=== PATIENT | male | born 1960 | race Caucasian/White ===

== ENCOUNTER 2016-07-04 15:30 | Day surgery (SDC) | payer OTHER ==
[~2016-07-04] VITALS: Ht 182.9 cm; Wt 108.0 kg
[~2016-07-04 15:30] MED LIST: ASPI-973 PO; FLUT15.88 NS; GLUC-123 PO; KRIL500C PO; KTC2C15 TP; LEVO150T5 PO; LISI10TA PO; MULT1CAP33 PO; SILD20TA14 PO; TEST200V IM; VITA400C64 PO; vitamin b complex PO
[2016-07-04 16:30] VITALS: BP 132/82; PULSE 68; RESP 18; O2SAT 97
[2016-07-04 16:35] VITALS: BP 140/87; PULSE 73; RESP 18; O2SAT 97
--- NOTE | 2016-07-04 16:55 | NUR ---
Phlebotomy Pt just over from Dr. Boogie office, Orders obtained from office, HCT 49.9, parameters HCT 40. Phebotomy performed without fail, VSS, denies dizziness. Pt rescheduled for August 18 at 4pm and will call about 2pm to confirm appt.
== END 2016-07-04 23:59 | disposition home or self-care (01) ==
LOC: MOCO 15:30
PROVIDERS: ATTEND Internal Medicine Hematology & Oncology
DX: D75.1 Secondary polycythemia (principal); T38.7X5D Adverse effect of androgens and anabolic congeners, subsequent encounter

== ENCOUNTER 2016-10-13 14:36 | Day surgery (SDC) | payer OTHER ==
[~2016-10-13] VITALS: Ht 182.9 cm; Wt 106.0 kg
[2016-10-13 16:15] VITALS: BP 140/92; PULSE 62; RESP 16; O2SAT 98
[2016-10-13 16:25] VITALS: BP 128/84; PULSE 62; RESP 16; O2SAT 98
[2016-10-13 16:30] VITALS: BP 130/88; PULSE 62; RESP 16; O2SAT 98
--- NOTE | 2016-10-13 16:51 | NUR ---
Phlebotomy. Patient arrived from MD office. Order for phlebotomy of one unit. Tolerated draw without adverse reaction. Appointment scheduled December 12 for next treatment.
== END 2016-10-13 23:59 | disposition home or self-care (01) ==
LOC: MOCO 14:36
PROVIDERS: ATTEND Internal Medicine Hematology & Oncology
DX: D45 Polycythemia vera (principal)